=== PATIENT | female | born 1945 | race Caucasian/White ===

== ENCOUNTER → 2024-03-08 14:56 | Outpatient (REF) | payer OTHER, SELFPAY | LOC: HWRAD 14:56 | PROVIDERS: ATTENDING PHYSICIAN Student in an Organized Health Care Education/Training Program | DX: Z13.31 Encounter for screening for depression (principal); M85.80 Other specified disorders of bone density and structure, unspecified site | CPT/HCPCS: 77063; 77067; 77080 ==

== ENCOUNTER 2024-04-22 20:29 | Emergency (ER) | payer OTHER, SELFPAY ==
[2024-04-22 20:31] VITALS: BP 204/112
--- NOTE | 2024-04-22 21:09 | ED.SKININJ ---
HPI-Injury
General
Chief Complaint: Skin Problem
Source: patient and spouse
Exam Limitations: none
Time Seen by Provider: 04/22/24 20:47
Nursing documentation reviewed up to this point in time: agreed with
Travel History
Have you had any contact with someone who has COVID-19?: No
Do you have any symptoms of coronavirus? Fever > 100 degrees, chills, cough, shortness of breath, sore throat, loss of taste or smell, muscle aches, or headache?: No
History of Present Illness-Injury
Is this injury a work related problem?: No
Is pt an associate of [facility]?: No
Initial Injury comments:
78-year-old female on Xarelto status post blood draw at an outpatient lab today to sticks to her left arm has some redness mild itching swelling mild warmth no fever or chills, had cellulitis previously she was worried that this was developing
cellulitis
Past History
Past History
ED Past Medical History: Arrthythmia (Atrial fibrillation), GERD, HTN, Hypercholesterolemia and Other (Iron deficiency anemia)
ED Past Surgical History: Cholecystectomy, Orthopedic (Knee surgery) and Other (Skin graft to left lower extremity)
Social History
Tobacco: Non-smoker
Alcohol: None
Drug: None
Personal:
Living: with family
Employment: Retired
Family History
Family History: Hypertension and CAD (sister dx with Takotsubo cardiomyopathy)
Review of Systems
Review of Systems
All Other Systems: Not applicable
Constitutional: Denies fever or chills
EENT: Reports no symptoms
Respiratory: Reports no symptoms
Cardiac: Reports no symptoms
ABD/GI: Reports no symptoms
Skin: Reports itching and rash
Phy Exam
Physical Exam
Physical Exam:
Physical Exam
General: no apparent distress, not acutely ill
Neck: No jaundice
Heart: s1/s2 regular rate and rhythm, no murmur. equal radial pulses.
Lungs: no acute respiratory distress. clear bilaterally
Neuro: alert and oriented. no focal neurological deficits
Skin: Warm and dry
Psychiatric: well kept. interactive and cooperative
Extremities: 2 areas of superficial phlebitis in the left antecubital fossa no cellulitic changes no warmth
Course
Vital Signs
Initial and Last Documented VS:
Initial Vital Signs
Temp Pulse Resp BP Pulse Ox
97.7 F 94 18 204/112 95
04/22/24 20:31 04/22/24 20:31 04/22/24 20:31 04/22/24 20:31 04/22/24 20:31
Last Documented Vital Signs
Temp Pulse Resp BP Pulse Ox
97.7 F 94 18 204/112 95
04/22/24 20:31 04/22/24 20:31 04/22/24 20:31 04/22/24 20:31 04/22/24 20:31
MDM/Problems Addressed
Differential Diagnosis Includes:
Phlebitis cellulitis contact dermatitis no signs of septic phlebitis or deep venous clot
MDM/Problems Addressed:
Skin rash
Chronic conditions affecting care: Arrhythmia
Acute Exacerbation and/or Progression of Chronic Illness: Arrhythmia
*Pulse Oximetry
Patient hypoxic: no
*Critical Care Note
Total Time (30-74mins, 75-104mins- exclusive of procedures): Not Applicable
Update Note
Update Note:
Update very minimal superficial phlebitis likely due to needlestick no palpable cord or she is on a blood thinner, I did provide reassurance, recommended ice, if her symptoms were to worsen she can get a prescription for Keflex filled ER for
worsening symptoms
ED Attending Note
-
Portions of this chart may have been created with voice recognition software.� Occasional wrong word or��sound alike� substitutions may have occurred due to the inherent limitations of voice recognition software.
Discharge Plan
Departure
Patient Disposition: Home (Routine Discharge)
Date of Disposition: 04/22/24
Time of Disposition: 21:08
Patient with high blood pressure during this ER visit?: Yes
Condition: Good
Discharge Problem:
Phlebitis
Instructions: Phlebitis (DC)
Prescriptions:
New
cephalexin 500 mg capsule
500 mg PO Q6H 7 Days Qty: 28 0RF
No Action
ascorbic acid (vitamin C) [Vitamin C] 500 MG tablet
500 mg PO BID
Patient Comments:
may take 2 to 3 daily
lansoprazole 30 MG capsule,delayed release(DR/EC)
30 mg PO DAILYPRN PRN (Reason: indigestion)
lisinopril 10 MG tablet
10 mg PO BID
ezetimibe 10 MG tablet
10 mg PO DAILY
rosuvastatin [Crestor] 40 MG tablet
40 mg PO QPM
metoprolol succinate 50 MG tablet extended release 24 hr
25 mg PO DAILY
peg 400-propylene glycol [Systane Gel] 10 ML drops,gel
0 drp BOTH EYES PRN PRN (Reason: dry eyes)
sennosides [senna] 1 TABLET tablet
2 tab PO BID 0RF
acetaminophen 325 MG tablet
650 mg PO QID 0RF
magnesium hydroxide 30 ML suspension
30 ml PO DAILYPRN PRN (Reason: constipation) 0RF
docusate sodium 100 MG capsule
100 mg PO BID 0RF
oxycodone 5 MG tablet
5 mg PO Q4HPRN PRN (Reason: moderate-severe pain) Qty: 0 0RF
Rx Instructions:
1-2 tabs
warfarin [Jantoven] 5 MG tablet
5 mg PO TONIGHT AT 1800 Qty: 0 0RF
Rx Instructions:
1 TABLET 03/10 PM, 03/11, PM, THEN ADVISED AFTER INR 03/12
rivaroxaban [Xarelto] 20 MG tablet
20 mg PO QPM Qty: 0 0RF
Rx Instructions:
*RESUME 14 days post-op when INR <2.0
*DO NOT TAKE WHILE ON COUMADIN
Activity Restrictions/Additional Instructions:
Use ice pack
If symptoms worsen get antibiotic prescription filled
Interventions
Interventions:
*Risk Screen - Suicide Last Done: 04/22/24 20:31
*General Assessment Last Done: 04/22/24 20:31
*Neglect/Abuse Screening Last Done: 04/22/24 20:31
ED-Skin Assessment Last Done: 04/22/24 20:57
Discharge Date and Time
Print Language: DUTCH
== END 2024-04-22 21:30 | disposition home or self-care (01) ==
LOC: EMR 20:29
PROVIDERS: EMERGENCY PHYSICIAN Emergency Medicine; FAMILY PHYSICIAN Student in an Organized Health Care Education/Training Program
DX: I80.8 Phlebitis and thrombophlebitis of other sites (principal); I10 Essential (primary) hypertension
CPT/HCPCS: 99282

== ENCOUNTER → 2024-10-13 13:00 | Outpatient (REF) | payer OTHER, SELFPAY | LOC: RCS 13:00 | PROVIDERS: ATTENDING PHYSICIAN Internal Medicine Cardiovascular Disease; FAMILY PHYSICIAN Nurse Practitioner Family | DX: I48.20 Chronic atrial fibrillation, unspecified (principal) | CPT/HCPCS: 93306 ==

== ENCOUNTER → 2025-03-14 08:33 | Outpatient (REF) | payer OTHER, SELFPAY | LOC: HWWDC 08:33 | PROVIDERS: ATTENDING PHYSICIAN Nurse Practitioner Family | DX: Z12.31 Encounter for screening mammogram for malignant neoplasm of breast (principal) | CPT/HCPCS: 77063; 77067 ==

== ENCOUNTER → 2025-04-13 08:34 | Outpatient (REF) | payer OTHER, MEDICARE, SELFPAY ==
[2025-04-13 10:57] LABS: Blood Urea Nitrogen 25 mg/dl (7-17); Calcium 9.5 mg/dl (8.4-10.2); Carbon Dioxide 28 mmol/L (22-30); Chloride 106 mmol/L (98-107); Glucose 107 mg/dl (70-99); HDL Cholesterol 56 mg/dl; LDL Cholesterol, Calculated 105 mg/dl; Potassium 5.1 mmol/L (3.5-5.1); Sodium 141 mmol/L (135-145); Total Cholesterol 191 mg/dl (50-199); Triglyceride 154 mg/dl (10-149); Very Low Density Lipoprotein 30 mg/dl (0-30); eGFR 57.31
[2025-04-13 11:12] LABS: Vitamin D, 25-OH*** 62.2 ng/mL (30-80)
== END ==
LOC: REG 08:34
PROVIDERS: ATTENDING PHYSICIAN Nurse Practitioner Family
DX: E87.5 Hyperkalemia (principal); E78.5 Hyperlipidemia, unspecified; E55.9 Vitamin D deficiency, unspecified
CPT/HCPCS: 36415; 80048; 80061; 82306